=== PATIENT | male | born 1945 | race Caucasian/White ===

== ENCOUNTER → 2017-01-30 | Outpatient (CLI) | payer MEDICARE ==
[2017-01-30 10:19] LABS: ALT 35 U/L (21-72); AST 27 U/L (17-59); Cholesterol 136 mg/dL (<200); HDL Cholesterol 25 mg/dL (40-60); Triglycerides 113 mg/dL (<150)
== END | disposition home or self-care (01) ==
LOC: LABWHC1 09:17
PROVIDERS: ATTEND Internal Medicine Cardiovascular Disease
DX: E78.2 Mixed hyperlipidemia (principal)
CPT/HCPCS: 36415; 80061; 84450; 84460

== ENCOUNTER → 2018-02-04 | Outpatient (CLI) | payer MEDICARE ==
[2018-02-04 10:13] LABS: ALT 25 U/L (21-72); AST 21 U/L (17-59); Cholesterol 141 mg/dL (<200); HDL Cholesterol 24 mg/dL (40-60); LDL Cholesterol,Calculated 86 mg/dL (0-99); Triglycerides 153 mg/dL (<150)
== END | disposition home or self-care (01) ==
LOC: LABWHC1 09:01
PROVIDERS: ATTEND Internal Medicine Cardiovascular Disease
DX: E78.2 Mixed hyperlipidemia (principal)
CPT/HCPCS: 36415; 80061; 84450; 84460

== ENCOUNTER → 2025-05-10 | Outpatient (CLI) | payer MEDICARE ==
--- NOTE | 2025-05-10 16:25 | US ---
EXAMINATION TYPE: US kidneys/renal and bladder DATE OF EXAM: 05/10/2025 COMPARISON: NONE CLINICAL INDICATION: Male, 80 years old with history of N13.30 UNSPECIFIED HYDRONEPHROSIS; hydronephr osis TECHNIQUE: Grayscale imaging of the bilateral kidneys and urinary bladder: FINDINGS: EXAM MEASUREMENTS: Right Kidney: 12.0 x 5.6 x 5.8 cm Left Kidney: 12.3 x 5.6 x 5.4 cm Right Kidney: Mild hydronephrosis seen Left Kidney: Mild hydronephrosis seen. Anechoic area seen inf pole measuring 1.4 x 1.4 x 1.4cm Bladder: Pt tried coming to exam with empty bladder per doctor. Pt states he tried voiding 30 minutes before exam and could not. Bilateral Jets seen: Only right jet seen Mild bilateral hydronephrosis. Simple cyst within the inferior pole of the left kidney. No solid amrita l mass. Corticomedullary differentiation is maintained bilaterally. No shadowing renal calculi. Urina ry bladder is anechoic with only the right ureteral jet is identified. Patient could not void during the exam. Urinary bladder volume of 442 mL. IMPRESSION: Mild bilateral hydronephrosis with distended urinary bladder. Patient could not void during the exam. Hydronephrosis may be due to urinary bladder distention. Correlate for neurogenic bladder with consi deration for Nunez catheter placement. [facility], , 05/10/2025 4:22 PM
== END | disposition home or self-care (01) ==
LOC: RADUSWWP 15:49
PROVIDERS: ATTEND Urology
DX: N13.30 Unspecified hydronephrosis (principal)
CPT/HCPCS: 76770

== ENCOUNTER → 2025-06-07 | Outpatient (CLI) | payer MEDICARE ==
--- NOTE | 2025-06-07 14:03 | CT ---
EXAMINATION TYPE: CT abdomen pelvis wo con DATE OF EXAM: 06/07/2025 COMPARISON: None CLINICAL INDICATION: Male, 80 years old with history of R31.1 MICRO HEMATURIA N13.30 BILAT HYDRONEPHR OSIS; PHH, Hematuria. TECHNIQUE: CT scan of the abdomen and pelvis is performed without oral or IV contrast. CT DLP: 726.[address] CTDI: mGy Automated exposure control for dose reduction was used. FINDINGS: Within the limitations of a non-contrast study, the following observations are made. The lungs are clear. Gallbladder is normal and there is no gallstone, wall thickening, pericholecystic fluid or distention . There is no biliary ductal dilatation. There is no organomegaly of the liver, pancreas, spleen or adrenal glands. There are no renal calcifications or hydronephrosis. There are multiple parapelvic cysts of the kidne ys. The caliber of the abdominal aorta is normal and there is no retroperitoneal adenopathy or hemorrhage . The bowel loops are normal in caliber is no evidence of obstruction. No inflammatory changes are iden tified in the mesentery and there is no free intraperitoneal air or fluid. There is no pelvic mass, free fluid, abscess or adenopathy. There is mild diverticulosis of the colon without CT evidence of diverticulitis. There is moderate to marked multilevel degenerative disease in the lumbar spine. There is a grade 1 a nterolisthesis of L4 on L5. There is spinal stenosis at the L3-4 and L4-5 levels. IMPRESSION: 1. No renal calcification. Bilateral parapelvic cysts. 2. No acute changes within the abdomen or pelvis. 3. 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 [facility], , 06/07/2025 2:01 PM
== END | disposition home or self-care (01) ==
LOC: RADCTMAIN 13:28
PROVIDERS: ATTEND Urology
DX: R31.1 Benign essential microscopic hematuria (principal); N13.30 Unspecified hydronephrosis; M48.061 Spinal stenosis, lumbar region without neurogenic claudication; M51.369 Other intervertebral disc degeneration, lumbar region without mention of lumbar back pain or lower extremity pain; M43.16 Spondylolisthesis, lumbar region
CPT/HCPCS: 74176